=== PATIENT | male | born 1965 | race Caucasian/White ===

== ENCOUNTER 2020-08-13 20:37 | Emergency (ER) | payer SELFPAY ==
[~2020-08-13] VITALS: Ht 162.6 cm; Wt 61.7 kg
--- NOTE | 2020-08-13 21:16 | NUR ---
Dr. Preciado at bedside for MSE.
[2020-08-13] MEDS ORDERED: predniSONE 20 MG TABLET PO ONE (21:30)
[2020-08-13] MEDS ORDERED: CEphaleXIN 500 MG CAPSULE PO ONE (21:30)
[2020-08-13] MEDS ORDERED: PRED20TA PO (21:33)
[2020-08-13] MEDS ORDERED: CEPH500C2 PO (21:33)
[2020-08-13] MEDS ORDERED: ALBU8.5H8 INH (21:33)
[2020-08-13] MEDS ORDERED: CEphaleXIN 500 MG CAPSULE ONE (21:38)
[2020-08-13] MEDS ORDERED: predniSONE 20 MG TABLET ONE (21:38)
[2020-08-13] MEDS ORDERED: GUAI120L56 PO (21:38)
[2020-08-13 21:42] VITALS: BP 125/71
--- NOTE | 2020-08-13 21:42 | NUR ---
Patient discharged to home in stable condition. Written and verbal after care instructions given. Patient verbalizes understanding of instructions. Stressed follow up or return to ER for worsening s/s. Patient out of ER with steady gait, no acute signs of distress, VSS, all belongings taken.
== END 2020-08-13 21:43 | disposition home or self-care (01) ==
LOC: ER 20:37
DX: R05 Cough (principal); F17.210 Nicotine dependence, cigarettes, uncomplicated; Z87.01 Personal history of pneumonia (recurrent)
CPT/HCPCS: 99283; 99406; J7512; A4663